=== PATIENT | female | born 1970 | race Caucasian/White ===

== ENCOUNTER 2017-08-21 06:50 | Day surgery (SDC) | payer BC, OTHER ==
[~2017-08-21] VITALS: Ht 157.5 cm; Wt 81.7 kg
--- NOTE | 2017-08-21 07:48 | NUR ---
2ND IV PLACED RH FOR BLOCK PER FREELANCE MAKEUP ARTIST REQ.
--- NOTE | 2017-08-21 10:00 | NUR ---
08/21/17 Sravanthi Amin 0954 O2 DECREASED TO 6L, O2 SAT 100%. 0959 O2 SAT 100%, O2 REMOVED.
--- NOTE | 2017-08-26 07:12 | OR ---
[facility] [address], [place] [address] Signed DATE OF OPERATION: 08/21/2017 SURGEON: Nelson Prescott MD PREOPERATIVE DIAGNOSIS: Painful mass dorsal aspect to right wrist. POSTOPERATIVE DIAGNOSIS: Painful mass dorsal aspect to right wrist, pathology pending. ANESTHESIA: [place] block with sedation. SPECIMENS AND COMPLICATIONS: There were no complications. Because the mass was quite atypical in its appearance, i.e., not a ganglion, it was sent to pathology for evaluation. WHAT WAS DONE: The patient was taken to the operating room. After [place] block was administered and the patient was gently sedated. The right upper extremity was positioned, prepped and draped in a routine sterile fashion. A transverse incision was made directly over the palpable mass. The skin was divided sharply. Subcutaneous tissue was bluntly spread, preserving a dorsal cutaneous veins and nerves. The mass was then identified. We were then able to gently shell it out, although was mildly adherent to the dorsal wrist capsule. It did not appear to violate the wrist capsule. It appeared to arise in the interval between the second and the third dorsal compartment. After we excising the mass and delivering off the field. It was passed into a pathology specimen jar. The wound was then examined. Both the thumb extensor and the wrist extensor tendons were unaffected. The tendons appeared to be unaffected. The wound was gently irrigated again, hemostasis was achieved with electrocautery and the wound was closed in a standard fashion. Sterile dressing was applied. The patient is awakened and taken to the recovery room where she arrived in stable condition. Counts were correct. An antibiotic protocols were followed. Electronically Signed By: NELSON PRESCOTT MD 08/26/17 0712 PATIENT NAME: GISELE MCKEON OPERATIVE REPORT DATE OF : 72 PHYSICIAN: NELSON PRESCOTT MD REPORT #: [id number] REPORT IS CONFIDENTIAL AND NOT TO BE RELEASED WITHOUT AUTHORIZATION [address] [place] [address] Signed Nelson Prescott MD WFB/MODL /[id number] Electronically Signed By: NELSON PRESCOTT MD 08/26/1712 PATIENT NAME: GISELE MCKEON OPERATIVE REPORT DATE OF : 72 PHYSICIAN: NELSON PRESCOTT MD REPORT #: [id number] REPORT IS CONFIDENTIAL AND NOT TO BE RELEASED WITHOUT AUTHORIZATION
== END 2017-08-21 10:57 | disposition home or self-care (01) ==
LOC: DS 06:50
PROVIDERS: Orthopaedic Surgery
PROC: 0RBN0ZZ Excision of Right Wrist Joint, Open Approach (ICD-10-PCS; principal; 2017-08-21 08:15)
DX: M67.431 Ganglion, right wrist (principal); G43.909 Migraine, unspecified, not intractable, without status migrainosus; J30.9 Allergic rhinitis, unspecified
CPT/HCPCS: 00400; J0690; J1885; J2250; J2405; J2704; J3010; J7120

== ENCOUNTER 2025-06-18 11:30 | Emergency (ER) | payer OTHER ==
[~2025-06-18] VITALS: Ht 157.5 cm; Wt 98.7 kg
[2025-06-18 13:12] VITALS: BP 115/77
== END 2025-06-18 13:24 | disposition home or self-care (01) ==
LOC: ED 11:30
DX: S80.01XA Contusion of right knee, initial encounter (principal); Z88.6 Allergy status to analgesic agent; Z88.5 Allergy status to narcotic agent; X50.0XXA Overexertion from strenuous movement or load, initial encounter
CPT/HCPCS: 73560; 99283